=== PATIENT | male | born 1990 | race Caucasian/White ===

== ENCOUNTER 2019-11-05 06:22 | Emergency (ER) | payer BC ==
[2019-11-05] MEDS ORDERED: Dexamethasone 10 MG/ML SDV IM ONE (06:37)
[2019-11-05] MEDS ORDERED: Ketorolac 30 MG/ML SDV IM ONE (06:40)
--- NOTE | 2019-11-05 06:46 | EDM.PDOC ---
ED HPI GENERAL MEDICAL PROBLEM - General Chief Complaint: ENT Problem Stated Complaint: HARD TIME BREATHING Time Seen by Provider: 11/05/19 06:28 Source of Information: Reports: Patient - History of Present Illness INITIAL COMMENTS - FREE TEXT/NARRATIVE: CC sore throat HPI: This is a 29-year-old male with a sore throat for the past 2 days. Pain is getting worse. Subjective fevers noted. No vomiting or diarrhea. PMHX/PSHX: Negative Social History: Negative for tobacco, negative for alcohol, negative for street drugs or marijuana Family history: Hypertension ROS: see chart PE: VS afebrile vital signs stable General: No apparent distress Head: Atraumatic normocephalic no lumps bumps or bruises Eyes: EOMI PERRLA Ears: TMs intact no hemotympanum no signs of infection no mastoid tenderness Nose: No epistaxis nares patent no septal wall hematoma Throat: Patient has posterior pharyngeal erythema and right tonsillar enlargement consistent with a 2 x 4 cm peritonsillar abscess. No stridor. Mucous membranes are moist Neck: Supple, bilateral cervical adenopathy noted Chest wall: No point tenderness Heart: Regular rate and rhythm without murmur gallop or rub Lungs: Clear to auscultation and percussion without rales rhonchi or wheeze Abdomen: Soft nontender nondistended without guarding rigidity or rebound Neck: No spinal point tenderness full range of motion in all 6 directions Back: No spinal paraspinal or CVA tenderness Extremities: full rom through out. no effusions skin: Warm dry intact no rashes neurologic: cranial nerves II through XII intact. No focal motor or sensory deficits noted MDM: Differential diagnosis: Pharyngitis peritonsillar abscess ED course: Patient's case discussed with the emergency physician and commissions analyst, Dr. Fleming at [facility] in [place]. They accept this patient in transfer. Patient administered Toradol and Decadron here and wishes to drive himself to [place] he is awake and alert not toxic his vital signs are stable I think this is an acceptable mode of transportation Diagnosis: Peritonsillar abscess Disposition: That vehicle to [facility] Throat Pain Score (Numeric/FACES): 5 - Related Data Allergies Allergy/AdvReac Type Severity Reaction Status Date / Time No Known Allergies Allergy Verified 09/13/16 14:17 Home Meds: Home Meds . [No Known Home Meds] 11/05/19 [History] Past Medical History - Past Health History Medical/Surgical History: Denies Medical/Surgical History Other Musculoskeletal History: currently has part of nail to lt hand, Psychiatric History: Reports: Anxiety, Depression Other Psychiatric History: Pt reported diagnosed with depression in the past and took Venefelexin for a year. - Infectious Disease History Infectious Disease History: Reports: Chicken Pox - Past Surgical History Head Surgeries/Procedures: Reports: None HEENT Surgical History: Reports: Oral Surgery Other Musculoskeletal Surgeries/Procedures:: hx surgery for rt hand fx (pinning of 4th metacarpal bone) Social & Family History - Family History Family Medical History: Noncontributory - Tobacco Use Smoking Status *Q: Never Smoker Second Hand Smoke Exposure: No - Caffeine Use Caffeine Use: Reports: Coffee, Energy Drinks Caffeine Use Comment: Pt stated he drinks a lot of coffee energy drinks. coffee 2-3cup/day, energy drink 1-2/day - Recreational Drug Use Recreational Drug Use: Yes Drug Use in Last 12 Months: Yes Recreational Drug Type: Reports: Marijuana/Hashish Recreational Drug Use Frequency: Socially ED ROS ENT - Review of Systems Review Of Systems: Comprehensive ROS is negative, except as noted in HPI. ED EXAM, ENT - Physical Exam Exam: See Below Text/Narrative:: See my dictation Course - Vital Signs Last Recorded V/S: Last Vital Signs Temp 36.5 C 11/05/19 06:27 Pulse 96 11/05/19 06:27 Resp 18 11/05/19 06:27 BP 134/77 11/05/19 06:27 Pulse Ox 98 11/05/19 06:27 - Orders/Labs/Meds Meds: Medications Discontinued Medications Generic Name Dose Route Start Last Admin Trade Name Freq PRN Reason Stop Dose Admin Dexamethasone 10 mg 11/05/19 06:37 Dexamethasone IM 11/05/19 06:38 ONETIME ONE Ketorolac Tromethamine 30 mg 11/05/19 06:40 Toradol IM 11/05/19 06:41 ONETIME ONE Departure - Departure Time of Disposition: 06:45 Disposition: DC/Tfer to [facility]ospice[facility] Clinical Impression: Peritonsillar abscess - Discharge Information Referrals: PCP,None [Primary Care Provider] - Additional Instructions: Go directly to [facility] emergency department. Do not eat or drink between now and then. Sepsis Event Note - Evaluation Sepsis Screening Result: No Definite Risk - Focused Exam Vital Signs: Vital Signs Temp Pulse Resp BP Pulse Ox 11/05/19 06:27 36.5 C 96 18 134/77 98 Date Exam was Performed: 11/05/19 Time Exam was Performed: 06:42
[2019-11-05 06:50] VITALS: BP 127/81; PULSE 80
== END 2019-11-05 07:00 | disposition hospice, inpatient (51) ==
LOC: MW.ED 06:22
DX: J36 Peritonsillar abscess (principal)
CPT/HCPCS: 96372; 99283; J1100; J1885; 99284

== ENCOUNTER 2022-09-13 21:28 | Emergency (ER) | payer BC ==
[2022-09-13] MEDS ORDERED: Diphtheria,Pertussis(Acell),Tetanus Vaccine 0.5 ML Syringe IM ONE (21:38)
[2022-09-13 23:01] LABS: CARBON DIOXIDE,CO2 29.6 mmol/L (21.0-32.0); POTASSIUM,K 4.3 mmol/L (3.5-5.1)
[2022-09-13] MEDS ORDERED: Iopamidol 755 MG/ML 500 ML Multipack Bottle IVPUSH STA (23:36)
[2022-09-14] MEDS ORDERED: Lisinopril 10 MG Tab PO ONE (00:23)
[2022-09-14] MEDS: LORazepam 1 MG Tab PO ONE ×2 (00:30→00:42)
[2022-09-14 00:43] VITALS: BP 120/83; PULSE 71
== END 2022-09-14 00:40 | disposition home or self-care (01) ==
LOC: MW.ED 21:28
DX: S41.111A Laceration without foreign body of right upper arm, initial encounter (principal); Z23 Encounter for immunization; W25.XXXA Contact with sharp glass, initial encounter; Y93.61 Activity, american tackle football
CPT/HCPCS: 36415; 73090-26-RT; 73090-RT; 74177; 74177-26; 80053; 81001; 85025; 85610; 90471; 90715; 99284-25; A9270-GY; Q9967